=== PATIENT | female | born 1970 | race African-American/Black ===

== ENCOUNTER 2016-09-22 15:38 | Emergency (ER) | payer MEDICAID ==
[~2016-09-22] VITALS: Ht 160 cm; Wt 90.0 kg
[~2016-09-22 15:38] MED LIST: PREN-88 PO
[2016-09-22 15:46] VITALS: BP 119/78
[2016-09-22 16:28] LABS: CLARITY URINE TURBID (CLEAR); COLOR URINE YELLOW (YELLOW); GLUCOSE URINE NEGATIVE (NEGATIVE); KETONES URINE NEGATIVE (NEGATIVE); LEUKOCYTE ESTERASE URINE 3+ (NEGATIVE); NITRITE URINE NEGATIVE (NEGATIVE); OCCULT BLOOD URINE 3+ (NEGATIVE); PH URINE 5.5 (4.5-8.0); PROTEIN URINE 1+ (NEGATIVE); SPECIFIC GRAVITY URINE 1.024 (1.005-1.030); UROBILINOGEN URINE 0.2 E.U./dL (0.2-1.0)
[2016-09-22 17:14] LABS: BACTERIA URINE TRACE; SQUAMOUS EPITHELIAL CELL URINE 1+ /lpf (RARE/1+)
[2016-09-22 17:15] LABS: WBC URINE 50-100 /hpf (0-2)
== END 2016-09-22 17:00 | disposition home or self-care (01) ==
LOC: ER 16:21
DX: N39.0 Urinary tract infection, site not specified (principal)
CPT/HCPCS: 81001; 81025; 99283